=== PATIENT | female | born 1975 | race Asian ===

== ENCOUNTER 2017-10-29 09:59 | Emergency (ER) | payer OTHER ==
[~2017-10-29] VITALS: Ht 160 cm; Wt 78.9 kg
--- NOTE | 2017-10-29 10:17 | ED GENERAL ADULT ---
History of Present Illness General Chief Complaint: Abdominal Pain/Flank Pain Stated Complaint: ABD PAIN Source: patient Exam Limitations: no limitations Vital Signs & Intake/Output Vital Signs & Intake/Output Vital Signs Date Time Temp Pulse Resp B/P B/P Pulse O2 O2 Flow FiO2 Mean Ox Delivery Rate 10/29 1215 98.0 70 20 123/58 96 Room Air 10/29 1115 97.0 76 140/90 10/29 1007 97.5 74 18 138/84 99 Room Air Allergies Coded Allergies: No Known Drug Allergies (Intermediate, NONE 10/29/17) Reconcile Medications Cephalexin (Keflex) 500 MG CAPSULE 1 CAP PO BID UTI Oxycodone HCl/Acetaminophen (Percocet 5-325 MG Tablet) 5 MG-325 MG TABLET 1 TAB PO BID PAIN Tamsulosin HCl (Flomax) 0.4 MG CAP.ER.24H 1 CAP PO DAILY RENAL COLIC Triage Note: C/0 L SIDED ABDOMINAL PAIN RADIATING TO BACK X 2 DAYS. HAS HAD SIMILIAR PAIN X A FEW MONTHS , BUT NOT SEVERE. SAW DR. VANCE ([facility] ON 10/26) HAD AN OUT PT US, B/W AND UA. DOES NOT KNOW RESULTS. ALSO C/O SLIGHT NAUSEA, NO DIARRHEA. Triage Nurses Notes Reviewed? yes : No Patient currently breastfeeds: No HPI: 10/29/17 11:10 AM 42-year-old female presents to the emergency department with intermittent left lower quadrant abdominal pain and left flank pain. She says she's had the symptoms for the past several days. She had an outside ultrasound which did reveal a malpositioned IUD and a right ovarian cyst. She denies any fever. Past History Travel History Traveled to [place] past 21 day No Medical History Any Pertinent Medical History? see below for history Neurological: NONE EENT: NONE Cardiovascular: NONE Respiratory: NONE Gastrointestinal: NONE Hepatic: NONE Renal: NONE Musculoskeletal: NONE Psychiatric: NONE Endocrine: NONE Surgical History Surgical History: none Psychosocial History What is your primary language Sami Tobacco Use: Never used ETOH Use: denies use Family History Hx Contributory? No Review of Systems Review of Systems Constitutional: Denies: fever. EENTM: Reports: no symptoms. Respiratory: Denies: short of breath. Cardiovascular: Denies: chest pain. GI: Reports: see HPI. Genitourinary: Reports: hesitation. Musculoskeletal: Reports: back pain. Skin: Denies: rash. Neurological/Psychological: Reports: no symptoms. Hematologic/Endocrine: Reports: no symptoms. Immunologic/Allergic: Reports: no symptoms. Physical Exam Physical Exam General Appearance: well developed/nourished, alert, awake, anxious, mild distress Head: atraumatic, normal appearance Eyes: Bilateral: normal appearance, PERRL, EOMI. Ears, Nose, Throat: normal pharynx, normal ENT inspection Neck: normal inspection, supple Respiratory: normal breath sounds, chest non-tender, no respiratory distress Cardiovascular: regular rate/rhythm Peripheral Pulses: 4+ radial (R), 4+ radial (L) Gastrointestinal: soft, non-tender Back: normal range of motion Extremities: normal inspection Neurologic/Psych: no motor/sensory deficits, awake, alert, oriented x 3 Skin: intact, normal color, warm/dry Core Measures ACS in differential dx? No CVA/TIA Diagnosis: No Sepsis Present: No Sepsis Focused Exam Completed? No Progress Differential Diagnoses I considered the following diagnoses in my evaluation of the patient: Plan of Care: Orders Procedure Date/time Status CULTURE,URINE 10/29 1039 Active URINE 10/29 1039 Complete URINALYSIS 10/29 1039 Complete Laboratory Tests 10/29/17 1047: Urinalysis LIGHT H, Urine Color YEL, Urine Clarity HAZY H, Urine pH 6.0, Ur Specific [place] >= 1.030, Urine Protein NEG, Urine Ketones NEG, Urine Nitrite NEG, Urine Bilirubin NEG, Urine Urobilinogen 0.2, Ur Leukocyte Esterase NEG, Ur Microscopic SEDIMENT EXAMINED, Urine RBC 10-15 H, Urine WBC 1-3 H, Ur Epithelial Cells MANY H, Urine Crystals 1+ [place] OX H, Urine Bacteria MOD H, Urine Mucus MOD H, Urine Hemoglobin MOD H, Urine Glucose NEG, Urine Test NEGATIVE Microbiology 10/29 1047 URINE ROUT: Urine Culture - RECD Initial ED EKG: none Departure Departure Disposition: HOME OR SELF CARE Condition: Stable Clinical Impression Primary Impression: Renal colic on left side Referrals: Kourtney Hood DO (PCP/Family) Departure Forms: Customer Survey General Discharge Information Prescriptions: Current Visit Scripts Cephalexin (Keflex) 1 CAP PO BID #20 CAP Oxycodone HCl/Acetaminophen (Percocet 5-325 MG Tablet) 1 TAB PO BID #6 TAB Tamsulosin HCl (Flomax) 1 CAP PO DAILY #5 CAP Comments 10/2910/29/[address] scan results are shown below PATIENT: USMAN SHIPMAN PRESENT AGE: 42 PATIENT ACCOUNT NO: [id number] : 74 LOCATION: [facility] ORDERING PHYSICIAN: Josemanuel Robison DO SERVICE DATE: 10/29/17 EXAM TYPE: CAT - CT ABD & PELVIS W IV CONTRAST EXAMINATION: CT ABDOMEN AND PELVIS WITH CONTRAST CLINICAL INFORMATION: Left flank pain. COMPARISON: Pelvic ultrasound 10/28/2017 TECHNIQUE: Multidetector volumetric imaging was performed of the abdomen and pelvis following IV administration of 95 mL of Optiray 320 intravenous contrast. Sagittal and coronal reformatted images were obtained on the technologist's workstation. DLP: 384 mGy-cm FINDINGS: LUNG BASES: The visualized lung bases are unremarkable. LIVER, GALLBLADDER, AND BILIARY TREE: The liver is normal in size, shape, and attenuation. No focal hepatic lesion or biliary ductal dilatation is present. The gallbladder is unremarkable with no evidence of radiopaque gallstones, gallbladder wall thickening, or obvious pericholecystic inflammatory changes. PANCREAS: Unremarkable. SPLEEN: Unremarkable. ADRENAL GLANDS: Unremarkable. KIDNEYS AND URETERS: The kidneys are normal in size, shape, and attenuation. There is mild left hydroureteronephrosis. There is a 0.3 cm calculus at the left ureterovesicular junction. Minimal left perinephric stranding. No additional calculi are seen. BLADDER: Unremarkable. GASTROINTESTINAL TRACT: The small and large bowel are unremarkable. The appendix is unremarkable. ABDOMINAL WALL: No significant hernia is appreciated. LYMPH NODES: Normal. VASCULAR: Unremarkable. PELVIC VISCERA: Anteverted uterus. IUD in place. There is a 2.4 cm right ovarian follicle. OSSEOUS STRUCTURES: No acute or suspicious osseous abnormality. IMPRESSION: Mild left hydroureteronephrosis with a 0.3 cm calculus at the left ureterovesicular junction. DICTATED BY: Matt Marr MD DATE/TIME DICTATED:10/29/171212 ROUND KILN DRAWER:JOSE DATE/TIME TRANSCRIBED:10/29/171212 CONFIDENTIAL, DO NOT COPY WITHOUT APPROPRIATE AUTHORIZATION. <Electronically signed in Other Vendor System> SIGNED BY: Matt Marr MD 10/29 1221 The patient needs pain medication, antibiotics, follow-up with urology and OB/ FASHION SHOW DIRECTOR. She will strain urine. The patient was asymptomatic on reevaluation. CT results were shared with the patient. She will follow up with urology. Also instructed to follow-up with FASHION SHOW DIRECTOR. Tim as directed. Flomax. Percocet for pain. Critical Care Note Critical Care Note Critical Care Time: non-applicable
[2017-10-29 12:15] VITALS: BP 123/58
--- NOTE | 2017-10-29 12:21 | CT SCAN REPORT ---
EXAMINATION: CT ABDOMEN AND PELVIS WITH CONTRAST CLINICAL INFORMATION: Left flank pain. COMPARISON: Pelvic ultrasound 10/28/2017 TECHNIQUE: Multidetector volumetric imaging was performed of the abdomen and pelvis following IV administration of 95 mL of Optiray 320 intravenous contrast. Sagittal and coronal reformatted images were obtained on the technologist's workstation. DLP: 384 mGy-cm FINDINGS: LUNG BASES: The visualized lung bases are unremarkable. LIVER, GALLBLADDER, AND BILIARY TREE: The liver is normal in size, shape, and attenuation. No focal hepatic lesion or biliary ductal dilatation is present. The gallbladder is unremarkable with no evidence of radiopaque gallstones, gallbladder wall thickening, or obvious pericholecystic inflammatory changes. PANCREAS: Unremarkable. SPLEEN: Unremarkable. ADRENAL GLANDS: Unremarkable. KIDNEYS AND URETERS: The kidneys are normal in size, shape, and attenuation. There is mild left hydroureteronephrosis. There is a 0.3 cm calculus at the left ureterovesicular junction. Minimal left perinephric stranding. No additional calculi are seen. BLADDER: Unremarkable. GASTROINTESTINAL TRACT: The small and large bowel are unremarkable. The appendix is unremarkable. ABDOMINAL WALL: No significant hernia is appreciated. LYMPH NODES: Normal. VASCULAR: Unremarkable. PELVIC VISCERA: Anteverted uterus. IUD in place. There is a 2.4 cm right ovarian follicle. OSSEOUS STRUCTURES: No acute or suspicious osseous abnormality. IMPRESSION: Mild left hydroureteronephrosis with a 0.3 cm calculus at the left ureterovesicular junction.
[2017-10-29] MEDS ORDERED: PERCOCET 5-3251 EACH PO (12:57)
[2017-10-29] MEDS ORDERED: FLOMAX0.4 M1 PO (12:57)
[2017-10-29] MEDS ORDERED: KEFLEX500 M1 PO (12:57)
== END 2017-10-29 13:03 ==
LOC: ERH 09:59
DX: N23 Unspecified renal colic (principal)
CPT/HCPCS: 74177; 81001; 81025; 87086; 96361; 96374; J1885

== ENCOUNTER 2017-11-16 11:33 | Emergency (ER) | payer OTHER ==
[~2017-11-16 11:33] MED LIST: FLOMAX0.4 M1 PO; KEFLEX500 M1 PO; PERCOCET 5-3251 EACH PO
[2017-11-16 11:37] VITALS: BP 140/92
[2017-11-16 12:10] LABS: ABSOLUTE BASOPHIL COUNT 0 /CUMM (0.0-0.2); ABSOLUTE EOSINOPHIL COUNT 0 /CUMM (0.0-0.7); ABSOLUTE GRANULOCYTE CT 10.2 /CUMM (1.4-6.5); ABSOLUTE LYMPH COUNT 1.3 /CUMM (1.2-3.4); ABSOLUTE MONOCYTE COUNT 0.6 /CUMM (0.10-0.60); BASOPHIL % 0.3 % (0.0-2.0); EOSINOPHIL % 0.2 % (0-5); HEMATOCRIT 36.7 % (37-47); MEAN CORPUSCULAR HGB 28.4 PG (27.0-31.0); MEAN CORPUSCULAR HGB CONC 34.4 G/DL (33.0-37.0); MEAN CORPUSCULAR VOLUME 82.7 FL (81.0-99.0); MEAN PLATELET VOLUME 8.6 FL (7.4-10.4); PLATELET COUNT 285 /CUMM (130-400); RBC DISTRIBUTION WIDTH 13.9 % (11.5-14.5); RED BLOOD CELL CT 4.44 /CUMM (4.20-5.40); WHITE BLOOD CELL COUNT 12.1 /CUMM (4.8-10.8)
--- NOTE | 2017-11-16 13:06 | ULTRASOUND REPORT ---
EXAMINATION: US RETROPERITONEAL COMPLETE (RENAL) CLINICAL INFORMATION: There is a 42-year-old female with history of left flank pain. History of kidney stones.. COMPARISON: Comparison is made to a CT scan dated 10/29/2017. Comparison is made to the previous ultrasound dated 10/28/2017. TECHNIQUE: Real-time imaging of the kidneys and bladder. FINDINGS: RIGHT KIDNEY: 12.6 cm (SAG x AP x TRV). The kidney is normal in size, contour, and echogenicity. Renal cortical thickness is normal. No calculi or focal parenchymal lesions. No hydronephrosis. LEFT KIDNEY: 11.9 cm (SAG x AP x TRV). The kidney is normal in size, contour, and echogenicity. Renal cortical thickness is normal. There is dilatation of the renal infundibula extending into the renal pelvis consistent with hydronephrosis. This hydronephrosis was not present on the previous ultrasound. There is a small amount of perinephric fluid. There is a lower pole 0.5 cm nonobstructing calculus. BLADDER: Partially distended. The right ureteral jet is seen. The left ureteral jet is not seen. There is a 0.9 cm echogenic area at the anatomic region of the ureterovesical junction which may represent a ureteral calculus. Prevoid bladder volume is 79 mL. Postvoid bladder volume is 42 mL. There may also be debris within the urinary bladder. IMPRESSION: 1. There is left-sided hydroureteronephrosis and a probable obstructing 0.9 cm ureterovesical junction calculus. This may be the calculus seen on the previous study dated 10/29/2017.
--- NOTE | 2017-11-16 15:34 | ED GENERAL ADULT ---
History of Present Illness General Chief Complaint: Abdominal Pain/Flank Pain Stated Complaint: LLQ PAIN SINCE 7AM S/P DC FROM ER Source: patient Exam Limitations: no limitations Vital Signs & Intake/Output Vital Signs & Intake/Output Vital Signs Date Time Temp Pulse Resp B/P B/P Pulse O2 O2 Flow FiO2 Mean Ox Delivery Rate 11/16 1137 97.2 83 17 140/92 98 Room Air Allergies Coded Allergies: No Known Drug Allergies (Intermediate, NONE 10/29/17) Reconcile Medications Cephalexin (Keflex) 500 MG CAPSULE 1 CAP PO BID UTI Cephalexin (Keflex) 500 MG CAPSULE 1 CAP PO BID UTI Ibuprofen 800 MG TABLET 1 TAB PO TID PRN pain Oxycodone HCl/Acetaminophen (Percocet 5-325 MG Tablet) 5 MG-325 MG TABLET 1 TAB PO BID PAIN Oxycodone HCl/Acetaminophen (Percocet 5-325 MG Tablet) 5 MG-325 MG TABLET 1 TAB PO Q4-6 PRN PRN pain Tamsulosin HCl (Flomax) 0.4 MG CAP.ER.24H 1 CAP PO DAILY RENAL COLIC Tamsulosin HCl (Flomax) 0.4 MG CAP.ER.24H 1 CAP PO DAILY renal stone Triage Note: PT TO ED WITH LLQ ABD PAIN BEGINNING THIS AM. +NAUSEA. DENIES CHANGES IN BOWEL OR BLADDER. DENIES FEVERS/CHILLS Triage Nurses Notes Reviewed? yes Onset: Gradual Duration: hour(s): Timing: constant : No Patient currently breastfeeds: No HPI: 42-year-old female with no known past medical history presenting with left flank pain 10-12 hours. Patient reports that she woke up this morning with severe left flank pain that has progressively been radiating to her left lower quadrant. Reports that she had a similar pain approximately 3 weeks ago for which she was seen in the emergency department, and had a CAT scan at that time that showed a 3 mm ureteral stone at the left UVJ. Patient was sent home with expectant management. Reports that her pain had resolved shortly after, and returning today. Denies fevers, nausea, vomiting, diarrhea, dysuria, hematuria. Past History Travel History Traveled to [place] past 21 day No Medical History Any Pertinent Medical History? none Neurological: NONE EENT: NONE Cardiovascular: NONE Respiratory: NONE Gastrointestinal: NONE Hepatic: NONE Renal: NONE Musculoskeletal: NONE Psychiatric: NONE Endocrine: NONE Surgical History Surgical History: none Psychosocial History What is your primary language Romanian Tobacco Use: Never used Family History Hx Contributory? No Review of Systems Review of Systems Constitutional: Reports: no symptoms. EENTM: Reports: no symptoms. Respiratory: Reports: no symptoms. Cardiovascular: Reports: no symptoms. GI: Reports: see HPI. Genitourinary: Reports: see HPI. Musculoskeletal: Reports: no symptoms. Skin: Reports: no symptoms. Neurological/Psychological: Reports: no symptoms. Hematologic/Endocrine: Reports: no symptoms. Immunologic/Allergic: Reports: no symptoms. All Other Systems: Reviewed and Negative Physical Exam Physical Exam General Appearance: well developed/nourished, no apparent distress, alert, awake , comfortable Head: atraumatic, normal appearance Eyes: Bilateral: normal appearance. Neck: normal inspection Respiratory: normal breath sounds, lungs clear Cardiovascular: regular rate/rhythm Gastrointestinal: soft, non-tender Back: normal inspection, NO CVA tenderness Extremities: normal inspection Neurologic/Psych: awake, alert, oriented x 3, normal gait, normal mood/affect Skin: intact, normal color, warm/dry Core Measures ACS in differential dx? No CVA/TIA Diagnosis: No Sepsis Present: No Sepsis Focused Exam Completed? No Progress Differential Diagnoses I considered the following diagnoses in my evaluation of the patient: [ Nephrolithiasis versus ureterolithiasis versus hydronephrosis versus UTI versus pyelonephritis, low concern for aortic dissection versus ovarian torsion versus ovarian cyst] Plan of Care: Orders Procedure Date/time Status Add-on Test (ER Only) 11/16 1602 Active HUMAN BETA HCG SCREEN 11/16 1156 Complete URINALYSIS 11/16 1140 Complete LIPASE 11/16 1140 Complete COMPREHENSIVE METABOLIC PANEL 11/16 1140 Complete CBC WITHOUT DIFFERENTIAL 11/16 1140 Complete Laboratory Tests 11/16/17 1310: Urine Color YEL, Urine Clarity CLEAR, Urine pH 7.0, Ur Specific [place] 1.010, Urine Protein NEG, Urine Ketones NEG, Urine Nitrite NEG, Urine Bilirubin NEG, Urine Urobilinogen 0.2, Ur Leukocyte Esterase TRACE H, Ur Microscopic SEDIMENT EXAMINED, Urine RBC 10-15 H, Urine WBC 1-3 H, Ur Epithelial Cells FEW, Urine Bacteria FEW H, Urine Hemoglobin SMALL H, Urine Glucose NEG 11/16/17 1156: Anion Gap 13, Estimated GFR > 60, BUN/Creatinine Ratio 21.3, Glucose 114 H, Calcium 8.9, Total Bilirubin 0.4, AST 28, ALT 30, Alkaline Phosphatase 78, Total Protein 6.8, Albumin 4.0, Globulin 2.8, Albumin/Globulin Ratio 1.4, Lipase 70, Total Beta HCG NEGATIVE, CBC w Diff MAN DIFF ORDERED, RBC 4.44, MCV 82.7, MCH 28.4, MCHC 34.4, RDW 13.9, MPV 8.6, Gran % 84.0 H, Lymphocytes % 10.6 L, Monocytes % 4.9, Eosinophils % 0.2, Basophils % 0.3, Absolute Granulocytes 10.2 H, Absolute Lymphocytes 1.3, Absolute Monocytes 0.6, Absolute Eosinophils 0, Absolute Basophils 0, Platelet Estimate ADEQUATE, Anisocytosis 1+ Labs show a mild leukocytosis to 12, UA shows hematuria, but is not consistent with infection. US IMPRESSION: 1. There is left-sided hydroureteronephrosis and a probable obstructing 0.9 cm ureterovesical junction calculus. This may be the calculus seen on the previous study dated 10/29/2017. Discussed with Dr. Galvan from urology and patient will need likely stenting with lithotripsy. Patient has elected to undergo the procedure after she returns from her trip to [place] in 2 weeks. 's office will arrange the procedure. Patient will be discharged home with Flomax, Motrin, and Percocet. Patient will also be given Rx Keflex for UTI prophylaxis given that she likely has an obstructive stone, that is at high risk for becoming an infected stone while she is on her trip over the next 2 weeks. Counseled on supportive care and strict return precautions. Initial ED EKG: none Departure Departure Disposition: HOME OR SELF CARE Condition: Stable Clinical Impression Primary Impression: Ureterolithiasis Secondary Impressions: Hydronephrosis Referrals: Kourtney Hood DO (PCP/Family) Maylin SUTHERLAND,Carson Flores Additional Instructions: Use Motrin and Percocet as needed for pain. Use Flomax once daily. Discontinue Flomax for any lightheadedness. Follow-up with urology once your back from her vacation. Return to the nearest emergency department for any new or worsening symptoms. Departure Forms: Customer Survey General Discharge Information Prescriptions: Current Visit Scripts Ibuprofen 1 TAB PO TID PRN pain #60 TAB Oxycodone HCl/Acetaminophen (Percocet 5-325 MG Tablet) 1 TAB PO Q4-6 PRN PRN pain #15 TAB Tamsulosin HCl (Flomax) 1 CAP PO DAILY #30 CAP Cephalexin (Keflex) 1 CAP PO BID #20 CAP Critical Care Note Critical Care Note Critical Care Time: non-applicable
[2017-11-16] MEDS ORDERED: PERCOCET 5-3251 EACH PO (15:51)
[2017-11-16] MEDS ORDERED: IBUPROFEN800 M1 PO (15:51)
[2017-11-16] MEDS ORDERED: FLOMAX0.4 M1 PO (15:51)
[2017-11-16] MEDS ORDERED: KEFLEX500 M1 PO (15:57)
== END 2017-11-16 16:02 ==
LOC: ERH 11:33
PROVIDERS: Physician Assistant
DX: N20.1 Calculus of ureter (principal); N13.30 Unspecified hydronephrosis
CPT/HCPCS: 76775; 81001; 96374; J1885